=== PATIENT | female | born 1980 | race Caucasian/White ===

== ENCOUNTER 2021-05-28 12:58 | Inpatient (IN) | payer BC, OTHER ==
[2021-05-28 13:40] VITALS: BMI 19.7
[2021-05-28] MEDS ORDERED: METHOCARBAMOL 500 MG TABLET PO PRN (14:52)
[2021-05-28] MEDS ORDERED: MENTHOL/PHENOL 1 EACH UD MM PRN (14:52)
[2021-05-28] MEDS ORDERED: ONDANSETRON *ODT* 4 MG TABLET SL PRN (14:52)
[2021-05-28] MEDS ORDERED: MAG HYDROX/AL HYDROX/SIMETH 30 ML UNIT-DOSE CUP PO PRN (14:52)
[2021-05-28] MEDS ORDERED: IBUPROFEN 400 MG TABLET (FP) PO PRN (14:52)
[2021-05-28] MEDS ORDERED: MAGNESIUM HYDROX 2400MG/30ML ORAL SUSPENSION 30 ML CUP PO PRN (14:52)
[2021-05-28] MEDS ORDERED: NALOXONE (NARCAN) HCL 4 MG/0.1 ML SPRAY NS PRN (14:52)
[2021-05-28] MEDS ORDERED: NICOTINE 10 MG CARTRIDGE (INHALER) IH PRN (14:52)
[2021-05-28] MEDS ORDERED: cloNIDine HCL 0.1 MG TABLET PO PRN (14:52)
[2021-05-28] MEDS ORDERED: ACETAMINOPHEN 325 MG TABLET (FP) PO PRN ×2 (14:52)
[2021-05-28] MEDS ORDERED: methaDONE HCL 10 MG TABLET (FOR DETOX USE ONLY) PO ONE (14:52)
[2021-05-28] MEDS ORDERED: BISMUTH SUBSALICYLATE 262 MG/15 ML BTL PO PRN (14:52)
[2021-05-28] MEDS ORDERED: MAGNESIUM CITRATE 300 ML BOTTLE PO PRN (14:52)
[2021-05-28] MEDS ORDERED: NICOTINE 14 MG/24 HOURS TOPICAL PATCH TD SCH (15:00)
[2021-05-28] MEDS ORDERED: hydrOXYzine PAMOATE 25 MG CAPSULE (FP) PO SCH (18:00)
[2021-05-28 18:19] VITALS: BP 122/73; PULSE 79; TEMP 96.6
[2021-05-28] MEDS ORDERED: THIAMINE HCL 100 MG TABLET (FP) PO SCH (22:00)
[2021-05-28] MEDS ORDERED: MELATONIN 5 MG TABLETS PO SCH (22:00)
[2021-05-30] MEDS ORDERED: methaDONE HCL 10 MG TABLET (FOR DETOX USE ONLY) PO ONE (10:00)
[2021-06-01] MEDS ORDERED: methaDONE HCL 10 MG TABLET (FOR DETOX USE ONLY) PO ONE (10:00)
== END 2021-05-28 17:05 | disposition left against medical advice (07) | DRG 894 ==
LOC: YASAS 12:58 → Y3N 14:30
PROVIDERS: ADMIT Allergy & Immunology; ATTEND Allergy & Immunology
PROC: HZ2ZZZZ Detoxification Services for Substance Abuse Treatment (ICD-10-PCS; principal; 2021-05-28)
DX: F11.23 Opioid dependence with withdrawal (principal); F14.20 Cocaine dependence, uncomplicated; F17.210 Nicotine dependence, cigarettes, uncomplicated; F31.9 Bipolar disorder, unspecified; G40.909 Epilepsy, unspecified, not intractable, without status epilepticus; G47.00 Insomnia, unspecified; J45.909 Unspecified asthma, uncomplicated; Z87.39 Personal history of other diseases of the musculoskeletal system and connective tissue; Z87.19 Personal history of other diseases of the digestive system
CPT/HCPCS: 81025; C9803; U0003; U0005